=== PATIENT | female | born 1995 | race American Indian/Alaskan Native ===

== ENCOUNTER 2021-10-04 10:25 | Emergency (ER) | payer SELFPAY ==
--- NOTE | 2021-10-04 11:22 | Emergency Department Report ---
ED Female HPI - General Chief complaint: Urogenital-Female Stated complaint: PAIN/ITCHNESS Source: patient Mode of arrival: Ambulatory Limitations: No Limitations - History of Present Illness Initial comments: 26-year-old male presents to the ED complaining vaginal discharge x3 days. Patient states that she has been white discharge after using vagsil feminine wash. Patient states vaginal itching. Patient states unprotected sex x1 day ago. Last menstrual cycle was September 01 through . Patient denies any abdominal pain, fever chills nausea vomiting. Patient states that she is not concerned with any STD. Patient is alert and oriented x3. No acute distress noted. No ill appearance noted. - Related Data Previous Rx's Medication Instructions Recorded Last Taken Type Terconazole [Terazol 7 Vag Cream] 1 applicator VG QHS 7 Days #7 10/04/21 Unknown Rx applicator metroNIDAZOLE [Flagyl] 500 mg PO Q12HR 7 Days #14 tab 10/04/21 Unknown Rx Allergies Allergy/AdvReac Type Severity Reaction Status Date / Time No Known Allergies Allergy Unverified 10/04/21 10:43 ED Review of Systems ROS: Stated complaint: PAIN/ITCHNESS Other details as noted in HPI Constitutional: denies: chills, fever Eyes: denies: eye pain, eye discharge, vision change ENT: denies: ear pain, throat pain Respiratory: denies: cough, shortness of breath, wheezing Cardiovascular: denies: chest pain, palpitations Endocrine: no symptoms reported Gastrointestinal: denies: abdominal pain, nausea, diarrhea Genitourinary: denies: urgency, dysuria, discharge Musculoskeletal: denies: back pain, joint swelling, arthralgia Skin: denies: rash, lesions Neurological: denies: headache, weakness, paresthesias Psychiatric: denies: anxiety, depression Hematological/Lymphatic: denies: easy bleeding, easy bruising ED Past Medical Hx - Past Medical History Previous Medical History?: No - Surgical History Past Surgical History?: No - Medications Home Medications: Home Medications Medication Instructions Recorded Confirmed Last Taken Type Terconazole [Terazol 7 Vag Cream] 1 applicator VG QHS 7 Days #7 10/04/21 Unknown Rx applicator metroNIDAZOLE [Flagyl] 500 mg PO Q12HR 7 Days #14 tab 10/04/21 Unknown Rx ED Physical Exam - General Limitations: No Limitations General appearance: alert, in no apparent distress - Head Head exam: Present: atraumatic, normocephalic - Eye Eye exam: Present: normal appearance - ENT ENT exam: Present: mucous membranes moist - Neck Neck exam: Present: normal inspection - Respiratory Respiratory exam: Present: normal lung sounds bilaterally. Absent: respiratory distress - Cardiovascular Cardiovascular Exam: Present: regular rate, normal rhythm. Absent: systolic murmur, diastolic murmur, rubs, gallop - GI/Abdominal GI/Abdominal exam: Present: soft, normal bowel sounds - External exam: Present: erythema Speculum exam: Present: erythema, vaginal discharge, cervical discharge - Extremities Exam Extremities exam: Present: normal inspection - Back Exam Back exam: Present: normal inspection - Neurological Exam Neurological exam: Present: alert, oriented X3 - Psychiatric Psychiatric exam: Present: normal affect, normal mood - Skin Skin exam: Present: warm, dry, intact, normal color. Absent: rash ED Course Vital Signs 10/04/21 10:45 Temperature 98.7 F Pulse Rate 97 H Respiratory 18 Rate Blood Pressure 119/71 O2 Sat by Pulse 100 Oximetry ED Medical Decision Making - Medical Decision Making 26-year-old male presents to the ED complaining vaginal discharge x3 days. Patient states that she has been white discharge after using vagsil feminine wash. Patient states vaginal itching. Patient states unprotected sex x1 day ago. Last menstrual cycle was September 01 through . Patient denies any abdominal pain, fever chills nausea vomiting. Patient states that she is not concerned with any STD. Patient is alert and oriented x3. No acute distress noted. No ill appearance noted. Physical examination erythema with white discharge noted from the cervical area. Wet prep is positive for bacterial vaginosis and yeast. She is empirically treated for gonorrhea and chlamydia. Rechecked the patient is resting quietly quietly and comfortable and feeling better. I discussed the results of diagnostic study, my clinical impression and the plan for further treatment with the patient. Patient agrees with plan and discharge at this present time. All question addressed. I have given the patient instruction regarding a diagnosis ,expectation ,follow- up and return precaution. I explained to the patient that emergent condition may arise and to return to the ED for new worsen and any new persisting condition. I have explained the importance of following up with the primary care physician or referral physician listed below has instructed. The patient verbalized understanding of discharge instruction. Critical care attestation.: If time is entered above; I have spent that time in minutes in the direct care of this critically ill patient, excluding procedure time. ED Disposition Clinical Impression: Bacterial vaginosis, Yeast infection of the vagina Disposition: HOME / SELF CARE / HOMELESS Is pt being admited?: No Does the pt Need Aspirin: No Condition: Stable Instructions: Bacterial Vaginosis (ED), Bacterial Vaginosis, [id number], Antibiotic Medicine, Adult, [id number], Vaginal Yeast Infection, Adult Additional Instructions: Take medication has prescribed Return to the ED for any worsening symptom Prescriptions: Terconazole [Terazol 7 Vag Cream] 1 applicator VG QHS 7 Days #7 applicator metroNIDAZOLE [Flagyl] 500 mg PO Q12HR 7 Days #14 tab Referrals: [facility] [Provider Group] - 3-5 Days Forms: STI Treatment and Prevention, Work/School Release Form(ED) Time of Disposition: 12:50
[2021-10-04] MEDS ORDERED: LIDOCAINE-MPF (1%) 10 MG/1 ML VIAL 5 ML INFILTRATI ONE (11:47)
[2021-10-04] MEDS ORDERED: AZITHROMYCIN 250 MG TAB PO ONE (11:48)
[2021-10-04 12:17] LABS: Bilirubin,Urine NEG (Negative); Blood,Urine NEG (Negative); Color,Urine Yellow (Yellow); HCG Qualitative,Urine Negative (Negative); Protein,Urine <15 mg/dL mg/dL (Negative); Urobilinogen,Urine < 2.0 mg/dL (<2.0)
[2021-10-04 12:24] LABS: Mucus,Urine FEW /HPF
[2021-10-04 13:02] VITALS: BP 126/77
== END 2021-10-04 13:08 | disposition home or self-care (01) ==
LOC: ED 10:25
DX: N76.0 Acute vaginitis (principal); B96.89 Other specified bacterial agents as the cause of diseases classified elsewhere; B37.3 Candidiasis of vulva and vagina
CPT/HCPCS: 81001; 81025; 87210; 96372; 99284; J0696; J3490